=== PATIENT | male | born 1990 | race Caucasian/White ===

== ENCOUNTER 2017-01-23 10:44 | Emergency (ER) | payer BC ==
[2017-01-23 10:54] VITALS: BP 154/89
--- NOTE | 2017-01-23 11:22 | EDM.PDOC ---
ED HPI GENERAL MEDICAL PROBLEM - General Chief Complaint: Back Pain or Injury Stated Complaint: BACK PAIN Time Seen by Provider: 01/23/17 11:03 Source of Information: Reports: Patient History Limitations: Reports: No Limitations - History of Present Illness INITIAL COMMENTS - FREE TEXT/NARRATIVE: The patient presents with low back pain. He has a history of 2 back surgeries. He was in the [employer] and he would do heavy lifting and he ruptured a disc. He had 2 surgeries to help. He was medically discharged and now he works in [place] with the [employer]. He was getting out of his truck 3 days ago when the pain started. He did not lift, twist or do anything strenuous to hurt his back. The surgeries and injuries in the past was for a bulging disc on the left side now his pain is on the right side. He has an appointment with the [facility] on Wednesday. He has some pain that shoots down his right leg and some numbness at times. He has no bowel or bladder problems. Onset: Gradual Duration: Day(s): (3) Location: Reports: Back (Low) Quality: Reports: Ache Severity: Moderate Improves with: Reports: None Worsens with: Reports: Movement Context: Reports: Activity (When he was getting out of his truck he 1st noticed it) Associated Symptoms: Reports: No Other Symptoms Lower Back Pain Score (Numeric/FACES): 7 - Related Data Allergies Allergy/AdvReac Type Severity Reaction Status Date / Time acetaminophen [From Vicodin] Allergy Hives Verified 06/08/15 18:09 hydrocodone Allergy Hives Verified 06/08/15 18:09 hydrocodone bitartrate Allergy Hives Verified 06/08/15 18:09 [From Vicodin] Home Meds: Home Meds Cyclobenzaprine [Flexeril] 10 mg PO TID PRN #20 tablet 01/23/17 [Rx] Dextroamphetamine/Amphetamine [Adderall 20 mg Tablet] 20 mg PO DAILY 01/23/17 [ History] oxyCODONE HCl/Acetaminophen [Percocet 5-325 mg Tablet] 1 - 2 each PO Q6HR PRN # 20 tablet 01/23/17 [Rx] Past Medical History HEENT History: Reports: Other (See Below) Other HEENT History: wisdom teeth Musculoskeletal History: Reports: Back Pain, Chronic Other Musculoskeletal History: back surgery X 2 Social & Family History - Tobacco Use Smoking Status *Q: Never Smoker Second Hand Smoke Exposure: No - Recreational Drug Use Recreational Drug Use: No ED ROS GENERAL - Review of Systems Review Of Systems: See Below Constitutional: Reports: No Symptoms HEENT: Reports: No Symptoms Respiratory: Reports: No Symptoms Cardiovascular: Reports: No Symptoms Endocrine: Reports: No Symptoms GI/Abdominal: Reports: No Symptoms : Reports: No Symptoms Musculoskeletal: Reports: Back Pain (Mild pain upon palpation to the right lower back) Skin: Reports: No Symptoms Neurological: Reports: No Symptoms ED EXAM,LOWER BACK PAIN/INJURY - Physical Exam Exam: See Below Exam Limited By: No Limitations General Appearance: Alert, No Apparent Distress Ears: Normal External Exam Nose: Normal Inspection Head: Atraumatic, Normocephalic Neck: Normal Inspection Respiratory/Chest: No Respiratory Distress, Lungs Clear, Normal Breath Sounds Cardiovascular: Regular Rate, Rhythm, No Edema, No Murmur GI/Abdominal: Soft, Non-Tender, No Organomegaly, No Mass Back Exam: Other (Mild pain upon palpation to the right lower back) Extremities: Normal Inspection Neurological: Normal Reflexes, No Motor/Sensory Deficits, Oriented x 3 Course - Vital Signs Last Recorded V/S: Last Vital Signs Temp 96.9 F 01/23/17 10:52 Pulse 100 01/23/17 10:52 Resp 16 01/23/17 10:52 BP 154/89 H 01/23/17 10:52 Pulse Ox 96 01/23/17 10:52 Departure - Departure Time of Disposition: 11:25 Disposition: Home, Self-Care 01 Condition: Good Clinical Impression: Low back pain Qualifiers: Chronicity: acute Back pain laterality: right Sciatica presence: with sciatica Sciatica laterality: sciatica of right side Qualified Code(s): M54.41 - Lumbago with sciatica, right side - Discharge Information Prescriptions: oxyCODONE HCl/Acetaminophen [Percocet 5-325 mg Tablet] 1 - 2 each PO Q6HR PRN # 20 tablet PRN Reason: Pain Cyclobenzaprine [Flexeril] 10 mg PO TID PRN #20 tablet PRN Reason: Pain Referrals: PCP,None [Primary Care Provider] - Forms: ED Department Discharge Additional Instructions: Take the flexeril and percocet as needed for pain. [facility] Please return if you are worse.
== END 2017-01-23 11:35 | disposition home or self-care (01) ==
LOC: JD.ED 10:44
DX: M54.41 Lumbago with sciatica, right side (principal); Z88.5 Allergy status to narcotic agent; Z98.890 Other specified postprocedural states; Z79.899 Other long term (current) drug therapy; X58.XXXA Exposure to other specified factors, initial encounter
CPT/HCPCS: 99283